=== PATIENT | female | born 1995 | race Caucasian/White ===

== ENCOUNTER 2016-09-16 17:45 | Emergency (ER) | payer OTHER ==
[2016-09-16] MEDS ORDERED: FENTANYL 100 MCG/2 ML VIAL ONE (18:28)
--- NOTE | 2016-09-16 18:48 | ER NURSING DOCUMENTATION ---
Nurse[facility] Notes [facility] Name:Alejandra Mcmahan Age:21 yrs Sex:Female :1995 Arrival Date:09/16/2016 Time:17:45 Bed6 Private MD:No PCP, Identified Diagnosis:Ankle Sprain Presentation: 09/16 17:49 Acuity: TANA 4 rh 17:56 Presenting complaint: Patient states: PT was walking down a trail at [facility], rh tripped and fell because she rolled her left ankle. No LOC. Transition of care: Other [facility]. 17:56 Method Of Arrival: Private Vehicle rh Triage Assessment: 17:57 General: Appears in no apparent distress, Behavior is cooperative. Pain: Complains of rh pain in left lateral ankle. EENT: Oral mucosa is moist. Neuro: Level of Consciousness is awake, alert, obeys commands, Oriented to person, place, time, event. Cardiovascular: Capillary refill < 3 seconds. Respiratory: Airway is patent Respiratory effort is even, unlabored. Musculoskeletal: Circulation, motion, and sensation intact Range of motion intact in all extremities. Injury Description: SWELLING IN THE LEFT ANKLE. Historical: - Allergies: PENICILLINS; Latex; - Home Meds: 1. None - PMHx: RAYNAUDS; - PSHx: Hip surgery; - Tetanus: < 10 years. - Ebola Screening: : Patient negative for fever greater than or equal to 101.5 degrees Fahrenheit, and additional compatible Ebola Virus Disease symptoms. - Immunization history: Flu Vaccine < 1 year. - Social history: Smoking status: Patient states was never smoker of tobacco. Screenin:59 Infectious Disease Risk None. Abuse screen: Denies threats or abuse. Denies injuries rh from another. Nutritional screening: No deficits noted. Assessment: 17:59 See Triage Assessment done by same RN. rh Vital Signs: 17:58 BP 141 / 85; Pulse 92; Resp 16; Temp 97.9(O); Pulse Ox 96% on R/A; Weight 79.38 kg; rh Height 5 ft. 5 in. (165.10 cm); Pain 6/10; 18:46 BP 137 / 85; Pulse 78; Resp 16; Pulse Ox 95% on R/A; Pain 3/10; rh 17:58 Body Mass Index 29.12 (79.38 kg, 165.10 cm) ED Course: 17:47 Patient arrived in ED. ds 17:48 No PCP, Identified is Private Physician. ds 17:49 Triage completed. 17:56 Rosie Eason is Primary Nurse. 17:58 Oneil Osborne MD is Attending Physician. tl1 17:59 Notified ED Physician of patient's arrival and chief complaint. Dr. Osborne notified. rh Affected limb iced. Affected limb elevated. 17:59 Valuables Remains with patient Patient has correct armband on for positive rh identification. Bed in low position. Call light in reach. Side rails up X 1. Warm blanket given. Pillow given. 18:28 3D boot applied to left foot. 18:30 Justo Sauer MD, Dimitris Alonzo DO is Referral Physician. tl1 18:45 Crutch training done. Administered Medications: 18:15 Drug: fentaNYL [place] 100 mcg; Route: Intranasal; Site: both nares; 18:27 Follow up: Response: Pain is decreased Outcome: 18:30 Discharge ordered by . tl1 18:46 Discharged to home ambulatory, with crutches, with friend. 18:46 Condition: improved 18:46 Discharge Assessment: Patient awake, alert and oriented x 3. No cognitive and/or functional deficits noted. Patient verbalized understanding of disposition instructions. 18:46 Discharge instructions given to patient, Instructed on crutch walking, discharge instructions, follow up and referral plans. medication usage, no drinking with medication, no driving heavy equipment, Demonstrated understanding of instructions, crutch walking, medications, Prescriptions given X 2. 18:46 Patient left the ED. Signatures: Silva Tran RN RN Srot, Alycia, Reg Reg Oneil Osborne MD MD tl1 Rosie Eason
--- NOTE | 2016-09-16 18:48 | ER PHYSICIAN DOCUMENTATION ---
Physician Documentation [facility] Name:Alejandra Mcmahan Age:21 yrs Sex:Female :1995 Arrival Date:09/16/2016 Time:17:45 Bed6 Private MD:No PCP, Identified ED Oneil Osborne Disposition: 09/16 19:00 Chart complete. tl1 Disposition: 09/16/16 18:30 Discharged to Home/Self Care. Impression: Ankle Sprain. - Condition is Good. - Discharge Instructions: CRUTCH WALKING, WALKER BOOT, Ankle - SPRAIN ANKLE (w/ x-ray). - Prescriptions for Capulin 5- 325 mg Oral Tablet - take 1 tablet by ORAL route every 6 hours As needed; 20 tablet. Zofran 4 mg Oral Tablet - take 1-2 tablet by ORAL route every 4-6 hours As needed; 10 tablet. - Medical Reconciliation form form. - Follow up: Justo Sauer MD, Dimitris Alonzo DO; When: 4- 6 days; Reason: Recheck today's complaints, Continuance of care. - Problem is new. - Symptoms have improved. HPI: 17:58 This 21 yrs old Female presents to ER via Private Vehicle with complaints of tl1 Foot Injury - LEFT. 09/17 03:20 The patient presents with pain, that is acute. Onset: The symptom(s)/episode tl1 began/occurred suddenly, just prior to arrival. She rolled her left ankle and has been unable to bear weight on it since the injury. She has no other complaintl. Historical: - Allergies: PENICILLINS; Latex; - Home Meds: 1. None - PMHx: RAYNAUDS; - PSHx: Hip surgery; - Tetanus: < 10 years. - Ebola Screening: : Patient negative for fever greater than or equal to 101.5 degrees Fahrenheit, and additional compatible Ebola Virus Disease symptoms. - Immunization history: Flu Vaccine < 1 year. - Social history: Smoking status: Patient states was never smoker of tobacco. ROS: 09/16 18:00 MS/extremity: Positive for injury or acute deformity, swelling, tenderness, of the left tl1 lateral ankle. All other systems are negative. Exam: 18:00 Constitutional: This is a well developed, well nourished patient who is awake, alert, tl1 and in no acute distress. 18:00 Cardiovascular: Rate: normal. 18:00 Respiratory: Respirations: normal. 18:00 Musculoskeletal/extremity: Extremities: grossly normal except: noted in the left lateral ankle: decreased ROM, deformity, pain, swelling, tenderness, There is no evidence of abrasion, ecchymosis, erythema, laceration, puncture. 18:00 Skin: Exam negative for acute changes. 18:00 Psych: Behavior/mood is anxious, Affect is animated. Vital Signs: 17:58 BP 141 / 85; Pulse 92; Resp 16; Temp 97.9(O); Pulse Ox 96% on R/A; Weight 79.38 kg; rh Height 5 ft. 5 in. (165.10 cm); Pain 6/10; 18:46 BP 137 / 85; Pulse 78; Resp 16; Pulse Ox 95% on R/A; Pain 3/10; rh 17:58 Body Mass Index 29.12 (79.38 kg, 165.10 cm) rh Procedures: 18:15 Splinting: Splint applied to lateral aspect of left calf, left lateral ankle, lateral tl1 aspect of left foot, left calf, left Achilles, left heel, medial aspect of left calf, left medial ankle and medial aspect of left foot using Ortho 3D boot, applied by nurse. Examined by me, post splint application: neurovascular intact. MDM: 17:58 Patient medically screened. tl1 18:15 Differential diagnosis: fracture, sprain. Data reviewed: vital signs, nurses notes, tl1 radiologic studies, plain films, and as a result, I will discharge patient. Counseling: I had a detailed discussion with the patient and/or guardian regarding: the historical points, exam findings, and any diagnostic results supporting the discharge/admit diagnosis, radiology results, the need for outpatient follow up, to return to the emergency department if symptoms worsen or persist or if there are any questions or concerns that arise at home. Medication response: The patient's symptoms have improved. 18:15 ED course: I told her this looks to be a high ankle sprain, with no TTP over the tl1 deltoid ligament.. 09/17 06:59 Order name: ANKLE; 3[place] [id number] EDAL 09/16 17:56 Order name: ORTHO: Ice Pack; Complete Time: 17:56 09/16 18:28 Order name: Walking Boot; Complete Time: 18:28 09/16 18:31 Order name: ORTHO: Crutches & Training; Complete Time: 18:45 tl1 Dispensed Medications: 18:15 Drug: fentaNYL [place] 100 mcg; Route: Intranasal; Site: both nares; 18:27 Follow up: Response: Pain is decreased lc Signatures: Silva Tran RN RN lc Leigh, Tom, MD MD tl1 Rosie Eason
--- NOTE | 2016-09-17 05:57 | RADIOLOGY REPORT ---
Three views of the left ankle demonstrate no displaced fracture or dislocation. There is varus angulation of the talus, raising concern for lateral ligamentous injury. The talar dome is intact. The mortise is not widened. The visualized joints otherwise appear unremarkable. IMPRESSION: Findings raising concern for lateral ligamentous injury. Further evaluation with MRI scanning would be of benefit. MTDD
== END 2016-09-16 18:47 | disposition home or self-care (01) ==
LOC: ER 17:45
DX: S96.912A Strain of unspecified muscle and tendon at ankle and foot level, left foot, initial encounter (principal); W01.0XXA Fall on same level from slipping, tripping and stumbling without subsequent striking against object, initial encounter; Y92.838 Other recreation area as the place of occurrence of the external cause; Y93.01 Activity, walking, marching and hiking; Y99.0 Civilian activity done for income or pay
CPT/HCPCS: 99283; J3010